=== PATIENT | male | born 1950 | race Two or more races ===

== ENCOUNTER 2023-04-06 06:46 | Day surgery (SDC) | payer OTHER | END 2023-04-06 13:45 | disposition home or self-care (01) | LOC: AMB-ENDOS 06:46 | PROVIDERS: ATTEND Colon & Rectal Surgery | DX: D12.6 Benign neoplasm of colon, unspecified (principal); K63.5 Polyp of colon; K57.30 Diverticulosis of large intestine without perforation or abscess without bleeding; K64.8 Other hemorrhoids ==